=== PATIENT | male | born 1955 | race African-American/Black ===

== ENCOUNTER 2023-06-17 21:03 | Emergency (ER) | payer MEDICARE, MEDICAID ==
[~2023-06-17] VITALS: Ht 185.4 cm; Wt 95.0 kg
[2023-06-17 21:30] VITALS: TEMP 98.2; O2SAT 98
[2023-06-18] MEDS ORDERED: LIDOCAINE HCL 1% 20ML VIAL (Pyxis) INJ INFIL ONE (06:00)
[2023-06-18] MEDS ORDERED: KETOROLAC 15MG/ML VIAL IM ONE (06:30)
[2023-06-18 06:43] VITALS: BP 135/80; PULSE 95; RESP 14
[2023-06-18] MEDS ORDERED: NAPR-681 MT (07:15)
== END 2023-06-18 07:18 | disposition home or self-care (01) ==
LOC: ER 21:03
DX: S63.275A Dislocation of unspecified interphalangeal joint of left ring finger, initial encounter (principal); E11.9 Type 2 diabetes mellitus without complications; I10 Essential (primary) hypertension; X58.XXXA Exposure to other specified factors, initial encounter; Y93.89 Activity, other specified; Y92.89 Other specified places as the place of occurrence of the external cause; Y99.8 Other external cause status
CPT/HCPCS: 99284; 73130 ×2; 26770; 96372; J1885; J3490